=== PATIENT | female | born 1985 | race Caucasian/White ===

== ENCOUNTER 2019-09-26 13:20 | Emergency (ER) | payer OTHER ==
[~2019-09-26] VITALS: Ht 170.2 cm; Wt 85.7 kg
[2019-09-26] MEDS ORDERED: BUPROPION XL300 MG PO (13:44)
[2019-09-26] MEDS ORDERED: HYDROCHLOROTHIA25 MG PO (13:44)
== END 2019-09-26 14:20 | disposition home or self-care (01) ==
LOC: ED 13:20
DX: K64.4 Residual hemorrhoidal skin tags (principal); F17.200 Nicotine dependence, unspecified, uncomplicated; Z88.0 Allergy status to penicillin; Z88.5 Allergy status to narcotic agent; Z79.899 Other long term (current) drug therapy
CPT/HCPCS: 99282

== ENCOUNTER 2020-11-09 10:07 | Day surgery (SDC) | payer OTHER ==
[~2020-11-09] VITALS: Ht 170.2 cm; Wt 79.1 kg
[~2020-11-09 10:07] MED LIST: BUPROPION XL300 MG PO; CELEXA10 MG PO; HYDROCHLOROTHIA25 MG PO; LORAZEPAM2 MG PO
--- NOTE | 2020-11-09 12:14 | NUR ---
11/09/20 1214 Sheets,Aleyda 1208 PT ARRIVED TO PACU WITH ORAL AIRWAY AND RESP EVEN AND UNLABORED. RN MOVED PT HEAD AND SNORING RESOLVED. VSS.
--- NOTE | 2020-11-09 13:47 | NUR ---
1250: PT ARRIVES TO UNIT VIA STRETCHER. ALERT AND ORIENTED. LAYS ON RIGHT SIDE. VSS, RESP EVEN AND UNLABORED. DENIES PAIN AND NAUSEA AT THIS TIME. MOTHER ATTENTIVE AT THE BEDSIDE. NO NEEDS VOICED, CALL LIGHT WITHIN REACH
--- NOTE | 2020-11-09 13:57 | NUR ---
1350: PT ALERT AND ORIENTED, COMFORTABLE, STATES "i'M READY TO GO HOME". VSS, RESP EVEN AND UNLABORED. DANGLES AT EDGE OF BED. GUICHO WELL. DENIES DIZZINESS AND SOB. AMBULATES TO BR WITH THIS RN STANDBY ASSIST. STEADY GAIT. SUCCESSFUL POST OP VOID. BACK TO ROOM TO PREPARE FOR D/C
--- NOTE | 2020-11-09 14:24 | NUR ---
1400: D/C INSTRUCTIONS PROVIDED AND DISCUSSED ORDERED. PT VERBALIZES UNDERSTANDING AND DENIES QUESTIONS OR CONCERNS AT THIS TIME. IV D/C'D WITH CATH TIP INTACT AND PRESSURE APPLIED TO SITE. WNL. 1410: PT WHEELED OFF OF UNIT BY THIS RN FOR D/C. TRANSFERS INTO VEHICLE INDEPENDENTLY. RESP EVEN AND UNLABORED, NO PHYSICAL S/S OF DISTRESS AT THIS TIME
--- NOTE | 2020-11-09 18:16 | OR ---
[facility] [address] [place], [place] [address] Signed DATE OF OPERATION: 11/09/2020 SURGEON: Jake Taveras MD PREOPERATIVE DIAGNOSES: 1. External hemorrhoids at the 1 and 5 o'clock positions. 2. Left-sided skin tags. 3. Posterior midline anal fissure. POSTOPERATIVE DIAGNOSES: 1. External hemorrhoids at the 1 and 5 o'clock positions. 2. Left-sided skin tags. 3. Posterior midline anal fissure. PROCEDURE: Internal and external hemorrhoidectomy x1 at the 1 o'clock position including posterior midline anal fissure. ESTIMATED BLOOD LOSS: None. INDICATIONS: Marco A is a 35-year-old female, who was asked to see me for ongoing external hemorrhoid issues. She has been through previous upper and lower endoscopies. I had examined her previously and found that she had abdominal external hemorrhoid at the 1 and 5 o'clock positions. She had reaffirmed that in the office followup. She also has some tiny anal skin tags on the left. She also has a very strong anal sphincter muscles. She has had a posterior midline anal fissure that apparently has healed. Although, she told me she would not tolerate my index finger nor the anoscope on exam at the office followup. We had visually examined the outside of the anal area on her office followup and again, she has hemorrhoid at 1 and 5 o'clock positions and just a little irritation. We mentioned an anterior midline anal fissure in the notes, but today we found a posterior midline anal fissure and that may be a typographical error. Again, we saw the skin tags on the left. I had given Marco A another brochure on hemorrhoids and fissures. We had gone through it in great detail. We have been through this more than once in the office. She is aware the hemorrhoid surgery is very painful. However, she wanted to proceed with excision of that hemorrhoid. We had reviewed the expected intraop and postop course. She understands there is risk including, but not limited to bleeding, infection, scarring, change in contour of the skin, recurrent anal fissures and/or hemorrhoids. She had expressed understanding and wished to proceed. Electronically Signed By: JAKE TAVERAS MD 11/09/20 1816 PATIENT NAME: MARCO A ADLER OPERATIVE REPORT DATE OF : 85 REPORT #: [id number] PHYSICIAN: JAKE TAVERAS MD PCP: RISHI GALEAS REPORT IS CONFIDENTIAL AND NOT TO BE RELEASED WITHOUT AUTHORIZATION [facility] [address] [place], [place] [address] Signed DESCRIPTION OF PROCEDURE: I met with Marco A and her mother in our preop area. After this, we took Marco A into the operating room. She was placed in the prone slava-knife position with appropriate padding and monitoring under general endotracheal tube anesthesia. She was given preoperative antibiotics along with subcutaneous heparin. SCDs were utilized. She was then prepped and draped in the usual sterile fashion. We repeated the digital rectal exam of the anal canal. Again, she has dominant hemorrhoid at the 1 o'clock position and slightly smaller hemorrhoid at the 5 o'clock position and a couple of anal skin tags on the left. We did not use pharmacologic paralysis and her muscles were relax, but still had moderate tone. We used a half-tafoya retractor and completely examined the full extent of the anal canal. Her largest and most dominant hemorrhoid was at the 1 o'clock position with some irritation. We also found fissure on the side of that hemorrhoid where it came down to the posterior anal midline. We therefore placed our 2-0 chromic suture at the apex of the internal hemorrhoid and we excised that external and internal component along with an anal fissure with the help of the cautery with direct visualization of the sphincter muscles at all times. We then brought the internal component back together with a running locked 2-0 chromic suture. The external component was left open. We removed two small anal skin tags on the left with the cautery. We then injected local anesthetic circumferentially around the anus for a field block. After this, dry gauze and dry ABD were applied along with mesh underwear. Marco A was then rotated into the supine position onto her hospital bed, weaned from her anesthesia, extubated in the OR and taken to the recovery room in stable condition. Jake Taveras MD ALB/MODL /[id number] cc: [facility] Jake Taveras MD Copies: JAKE TAVERAS MD Electronically Signed By: JAKE TAVERAS MD 11/09/20 1816 PATIENT NAME: MARCO A ADLER OPERATIVE REPORT DATE OF : 85 REPORT #: [id number] PHYSICIAN: JAKE TAVERAS MD PCP: RISHI GALEAS REPORT IS CONFIDENTIAL AND NOT TO BE RELEASED WITHOUT AUTHORIZATION [facility] [address] [place], [place] [address] Signed ~ Electronically Signed By: JAKE TAVERAS MD 11/09/20 1816 PATIENT NAME: MARCO A ADLER OPERATIVE REPORT DATE OF : 85 REPORT #: [id number] PHYSICIAN: JAKE TAVERAS MD PCP: RISHI GALEAS REPORT IS CONFIDENTIAL AND NOT TO BE RELEASED WITHOUT AUTHORIZATION
--- NOTE | 2020-11-12 18:16 | PATH ---
[facility] [address] [place], [place] [address] Signed SPECIMEN(S): A INTERNAL/EXTERNAL, RIGHT HEMORRHOID SPECIMEN SOURCE: A. INTERNAL/EXTERNAL, RIGHT HEMORRHOID CLINICAL HISTORY: Hemorrhoids. External hemorrhoidectomy. FINAL PATHOLOGIC DIAGNOSIS: Internal/external hemorrhoid, right, hemorrhoidectomy: - Mixed internal/external hemorrhoid. NAL:cml:C2NR MICROSCOPIC EXAMINATION: Histologic sections of all submitted blocks are examined by light microscopy. These findings, together with the gross examination, support the pathologic diagnosis. GROSS DESCRIPTION: The specimen, labeled "MG," and designated on the requisition "internal/external hemorrhoid, right," is received in formalin and consists of a portion of red-brown soft tissue with pink-reyez to hemorrhagic skin and mucosal surface (3.4 x 2.2 x 1.0 cm). The resection margin is inked blue and the specimen is serially sectioned to reveal a pink-reyez to hemorrhagic cut surface with prominent, dilated vessels. Electric Car Operator sections are submitted in cassette (A1). AC (under the direct supervision of a pathologist) The Gross Description was prepared using a voice recognition system. The report was reviewed for accuracy; however, sound-alike word errors, addition and/or deletions may occur. If there is any question about this report, please contact Client Services. PERFORMING LABORATORY: The technical component was performed by [facility] [employer] [facility], [address] [place] [id number] (Vessel Slagman: Stella Souza MD; CLIA# [id number]). [facility] [place] [address] [address] (CLIA# [id number]). Diagnostician: Saira Pritchett MD Pathologist PATIENT NAME: MARCO A ADLER PATHOLOGY DATE OF : [birth year] REPORT #: [id number] PHYSICIAN: BRYANNA PATHOLOGY PCP: RISHI GALEAS REPORT IS CONFIDENTIAL AND NOT TO BE RELEASED WITHOUT AUTHORIZATION [address] [address] Signed Electronically Signed 11/12/2020 Copies: ~ PATIENT NAME: MARCO A ADLER PATHOLOGY DATE OF : [birth year] REPORT #: [id number] PHYSICIAN: BYRANNA PATHOLOGY PCP: RISHI GALEAS REPORT IS CONFIDENTIAL AND NOT TO BE RELEASED WITHOUT AUTHORIZATION
== END 2020-11-09 14:20 | disposition home or self-care (01) ==
LOC: DS 10:07
PROVIDERS: ATTEND Colon & Rectal Surgery
PROC: 06BY0ZC Excision of Hemorrhoidal Plexus, Open Approach (ICD-10-PCS; principal; 2020-11-09 12:00)
DX: K64.4 Residual hemorrhoidal skin tags (principal); K60.2 Anal fissure, unspecified; K64.8 Other hemorrhoids; J45.909 Unspecified asthma, uncomplicated; F17.220 Nicotine dependence, chewing tobacco, uncomplicated; Z85.41 Personal history of malignant neoplasm of cervix uteri; Z88.1 Allergy status to other antibiotic agents; Z91.040 Latex allergy status; Z88.5 Allergy status to narcotic agent; Z88.0 Allergy status to penicillin; M51.36 Other intervertebral disc degeneration, lumbar region; M50.321 Other cervical disc degeneration at C4-C5 level; G89.29 Other chronic pain; Z90.711 Acquired absence of uterus with remaining cervical stump
CPT/HCPCS: 00902; J0330; J0690; J1100; J1170; J1644; J1885; J2001; J2250; J2405; J2704; J2765; J3010; J7121

== ENCOUNTER 2021-01-07 16:10 | Emergency (ER) | payer OTHER ==
[~2021-01-07] VITALS: Ht 170.2 cm; Wt 71.7 kg
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
[2021-01-07] MEDS ORDERED: RECTIV30 GM PR (21:18)
== END 2021-01-07 21:38 | disposition home or self-care (01) ==
LOC: ED 16:10
DX: G89.18 Other acute postprocedural pain (principal); K62.89 Other specified diseases of anus and rectum; Z87.891 Personal history of nicotine dependence; Z88.0 Allergy status to penicillin; Z88.5 Allergy status to narcotic agent; Z88.1 Allergy status to other antibiotic agents; Z91.040 Latex allergy status; Z79.899 Other long term (current) drug therapy
CPT/HCPCS: 72193; 80053; 81001; 83690; 85025; 99284-25

== ENCOUNTER 2022-07-14 22:47 | Emergency (ER) | payer OTHER ==
[~2022-07-14] VITALS: Ht 170.2 cm; Wt 71.7 kg
[~2022-07-14 22:47] MED LIST changes: +RECTIV30 GM PR
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
[2022-07-14] MEDS ORDERED: MINIPRESS2 MG PO (22:55)
[2022-07-15] MEDS ORDERED: CARAFATE1 GM PO (00:26)
[2022-07-15] MEDS ORDERED: PROTONIX40 MG PO (00:26)
== END 2022-07-15 01:04 | disposition home or self-care (01) ==
LOC: ED 22:47
DX: K29.70 Gastritis, unspecified, without bleeding (principal); Z87.891 Personal history of nicotine dependence; Z88.0 Allergy status to penicillin; Z88.5 Allergy status to narcotic agent; Z88.1 Allergy status to other antibiotic agents; Z91.040 Latex allergy status; Z88.8 Allergy status to other drugs, medicaments and biological substances; Z79.899 Other long term (current) drug therapy
CPT/HCPCS: 36415; 74177; 80053; 81003; 83690; 85025; 96361; 96374; 96375; 99284-25; A9270; G0480; J1170; J2060; J2405; J7121

== ENCOUNTER 2022-07-17 19:48 | Emergency (ER) | payer OTHER ==
[~2022-07-17] VITALS: Ht 170.2 cm; Wt 79.1 kg
[~2022-07-17 19:48] MED LIST changes: +CARAFATE1 GM PO; +MINIPRESS2 MG PO; +PROTONIX40 MG PO
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
[2022-07-17] MEDS ORDERED: ESCITALOPRAM OX10 MG PO (20:28)
[2022-07-17] MEDS ORDERED: REGLAN10 MG PO (21:48)
[2022-07-17] MEDS ORDERED: ONDANSETRON ODT8 MG PO (21:48)
== END 2022-07-17 22:04 | disposition home or self-care (01) ==
LOC: ED 19:48
DX: K52.9 Noninfective gastroenteritis and colitis, unspecified (principal); Z87.891 Personal history of nicotine dependence; Z88.0 Allergy status to penicillin; Z88.5 Allergy status to narcotic agent; Z88.1 Allergy status to other antibiotic agents; Z91.040 Latex allergy status; Z79.899 Other long term (current) drug therapy
CPT/HCPCS: 36415; 80053; 81003; 83690; 84703; 85025; 96361; 96374; 96375; 99284-25; A9270; J2405; J2765; J7030

== ENCOUNTER 2023-06-03 15:47 | Emergency (ER) | payer OTHER ==
[~2023-06-03] VITALS: Ht 170.2 cm; Wt 86.6 kg
[~2023-06-03 15:47] MED LIST changes: +ESCITALOPRAM OX10 MG PO; +ONDANSETRON ODT8 MG PO; +REGLAN10 MG PO
[2023-06-03] MEDS ORDERED: TRAZODONE HCL150 MG PO (15:58)
[2023-06-03] MEDS ORDERED: CLONAZEPAM0.5 MG PO (15:58)
[2023-06-03] MEDS ORDERED: BUSPIRONE HCL30 MG PO (15:59)
[2023-06-03] MEDS ORDERED: FAMCICLOVIR500 MG PO (16:24)
[2023-06-03] MEDS ORDERED: BACTRIM DS TAB1 EACH PO (16:24)
[2023-06-03 16:58] VITALS: BP 103/69
== END 2023-06-03 16:59 | disposition home or self-care (01) ==
LOC: ED 15:47
DX: L03.211 Cellulitis of face (principal); B00.1 Herpesviral vesicular dermatitis; Z88.0 Allergy status to penicillin; Z87.891 Personal history of nicotine dependence; Z88.5 Allergy status to narcotic agent; Z88.1 Allergy status to other antibiotic agents; Z91.040 Latex allergy status; Z79.899 Other long term (current) drug therapy
CPT/HCPCS: 99282; A9270